=== PATIENT | male | born 1980 | race African-American/Black ===

== ENCOUNTER 2025-03-31 22:00 | Emergency (ER) | payer MEDICAID, OTHER ==
--- NOTE | 2025-03-31 22:10 | ED.PDOC ---
Back pain HPI HPI Comments 45-year-old male presents to the ED chief complaint acute on chronic left foot pain. States greater than 2 years ago had surgery for fracture over the past 3 days pain has been getting worse. Also states chronic ulcer nonhealing. Denies new injury, numbness, weakness, fever, chills, nausea or vomiting. Time Seen by MD: 22:07 Reviewed Notes: Nurses Notes, Medications, Allergies Allergies: Coded Allergies: No Known Drug Allergy (Verified Allergy, Unknown, 04/01/25) Home Meds Active Scripts Meloxicam (Meloxicam) 15 Mg Tab, 1 TAB PO DAILY for 14 Days, #14 TAB Prov:BOBBYVICTORINO [employer] 04/01/25 Doxycycline Hyclate (Doxycycline Hyclate) 100 Mg Cap, 100 MG PO BID for 7 Days, #14 CAP Prov:VICTORINO ROSALES [facility] 04/01/25 Information Source: Patient Past Medical History PAST MEDICAL HISTORY: Denies Surgical History: Denies all surgeries Family History Family History: Reviewed,noncontributory to illness Social History Smoker: Non-Smoker Alcohol: Denies ETOH Use Drugs: Denies Drug Use Constitutional: denies: chills, diaphoresis, fatigue, fever, malaise, sweats, weakness, others EENTM: denies: blurred vision, double vision, ear bleeding, ear discharge, ear drainage, ear pain, ear ringing, eye pain, eye redness, hearing loss, mouth pain, mouth swelling, nasal discharge, nose bleeding, nose congestion, nose pain, photophobia, tearing, throat pain, throat swelling, voice changes, others Respiratory: denies: cough, hemoptysis, orthopnea, SOB at rest, shortness of breath, SOB with excertion, stridor, wheezing, others Cardiovascular: denies: chest pain, dizzy spells, diaphoresis, Dyspnea on exertion, edema, irregular heart beat, left arm pain, lightheadedness, palpitations, PND, syncope, others Gastrointestinal: denies: abdomen distended, abdominal pain, blood streaked bowels, constipated, diarrhea, dysphagia, difficulty swallowing, hematemesis, melena, nausea, poor appetite, poor fluid intake, rectal bleeding, rectal pain, vomiting, others Genitourinary: denies: burning, dysuria, flank pain, frequency, hematuria, incontinence, penile discharge, penile sore, pain, testicle pain, testicle swelling, urgency, others Neurological: denies: dizziness, fainting, headache, left sided numbness, left sided weakness, numbness, paresthesia, pre-existing deficit, right sided numbness, right sided weakness, seizure, speech problems, tingling, tremors, weakness, others Musculoskeletal: reports: others (left foot ); denies: back pain, gout, joint pain, joint swelling, muscle pain, muscle stiffness, neck pain Physical Exam General Appearance: No Apparent Distress, Normal HEENT: Head (Moderate facial swelling orbital edema), Pharynx Normal, TMs Normal Neck: Full Range of Motion, Non-Tender Respiratory: Chest Non-Tender, Lungs Clear, No Accessory Muscle Use, No Respiratory Distress, Normal Breath Sounds Cardiovascular: No Edema, No JVD, No Murmur, No Gallop, Normal Peripheral Pulses, Regular Rate/Rhythm Breast Exam: Deferred Gastrointestinal: No Organomegaly, Non Tender, No Pulsatile Mass, Normal Bowel Sounds, Soft Genitalia: Deferred Pelvic: Deferred Rectal: Deferred Extremities: Normal capillary refill, Normal inspection, Normal range of motion, Non-tender, No pedal edema Musculoskeletal : Apperance: Normal Neurologic: Alert, No Motor Deficits, Normal Affect, Normal Mood, No Sensory Deficits Cerebellar Function: Normal Reflexes: Normal Skin: Dry, Normal Color, Warm Lymphatic: No Adenopathy Was a procedure done? Was a procedure done?: No Back Pain Differential Dx Differential Diagnosis: Fracture, Musculoskeletal Pain X-Ray, Labs, Meds, VS Comment Patient called out x3 in the lobby and outside no answer patient was taken out of the system as left without being triage. However patient states he was outside in the bench sleeping did not hear his name. Rechecked in Time of 1ST Reevaluation: 22:09 Reevaluation 1ST: Unchanged Patient Education/Counseling: Diagnosis, Treatment, Prognosis, Need For Follow Up Family Education/Counseling: No Family Present Departure 1 Departure Time of Disposition: 22:05 Impression: Primary Impression: Chronic foot ulcer Qualified Codes: L97.529 - Non-pressure chronic ulcer of other part of left foot with unspecified severity Disposition: 07 LEFT WITHOUT BEING TRIAGED Condition: Stable Discharged With: Self Critical Care Note Critical Care Time?: No Stability Stability form required: VICTORINO Guallpa Mar 31, 2025 22:10
[2025-04-01] MEDS ORDERED: cefTRIAXone SOD 1,000 MG VL ONE (01:34)
[2025-04-01] MEDS ORDERED: HYDROcodone-ACET 5/325MG TAB ONE (01:34)
[2025-04-01] MEDS ORDERED: DOXY100C4 PO (03:53)
[2025-04-01] MEDS ORDERED: MELO15TA29 PO (03:54)
== END 2025-03-31 22:05 | disposition left against medical advice (07) ==
LOC: ER 22:00
DX: L97.529 Non-pressure chronic ulcer of other part of left foot with unspecified severity (principal); Z79.1 Long term (current) use of non-steroidal anti-inflammatories (NSAID); Z79.899 Other long term (current) drug therapy

== ENCOUNTER 2025-04-01 00:53 | Emergency (ER) | payer MEDICAID, OTHER ==
[~2025-04-01] VITALS: Ht 177.8 cm; Wt 72.3 kg
--- NOTE | 2025-04-01 01:31 | ED.PDOC ---
History of Present Illness(SKN HPI Comments PATIENT C/O LEFT FOOT PAIN, SWELLING, AND AN ABSCESS X2 YEARS Chief Complaint: Lower Extremity Time Seen by MD: 00:56 History of Present Illness: Nurses Notes, Medications, Allergies Allergies: Coded Allergies: No Known Drug Allergy (Verified Allergy, Unknown, 04/01/25) Home Meds Active Scripts Doxycycline Hyclate (Doxycycline Hyclate) 100 Mg Cap, 100 MG PO BID for 7 Days, #14 CAP Prov:VICTORINO ROSALES [employer] 04/01/25 Information Source: Patient Mode of Arrival: Ambulatory Past Medical History PAST MEDICAL HISTORY: Denies Surgical History: Denies all surgeries Family History Family History: Reviewed,noncontributory to illness Social History Smoker: Non-Smoker Alcohol: Denies ETOH Use Drugs: Denies Drug Use Constitutional: denies: chills, diaphoresis, fatigue, fever, malaise, sweats, weakness, others EENTM: denies: blurred vision, double vision, ear bleeding, ear discharge, ear drainage, ear pain, ear ringing, eye pain, eye redness, hearing loss, mouth pain, mouth swelling, nasal discharge, nose bleeding, nose congestion, nose pain, photophobia, tearing, throat pain, throat swelling, voice changes, others Respiratory: denies: cough, hemoptysis, orthopnea, SOB at rest, shortness of breath, SOB with excertion, stridor, wheezing, others Cardiovascular: denies: chest pain, dizzy spells, diaphoresis, Dyspnea on exertion, edema, irregular heart beat, left arm pain, lightheadedness, palpitations, PND, syncope, others Gastrointestinal: denies: abdomen distended, abdominal pain, blood streaked bowels, constipated, diarrhea, dysphagia, difficulty swallowing, hematemesis, melena, nausea, poor appetite, poor fluid intake, rectal bleeding, rectal pain, vomiting, others Genitourinary: denies: burning, dysuria, flank pain, frequency, hematuria, incontinence, penile discharge, penile sore, pain, testicle pain, testicle swelling, urgency, others Neurological: denies: dizziness, fainting, headache, left sided numbness, left sided weakness, numbness, paresthesia, pre-existing deficit, right sided numbness, right sided weakness, seizure, speech problems, tingling, tremors, weakness, others Musculoskeletal: reports: joint swelling; denies: back pain, gout, joint pain, muscle pain, muscle stiffness, neck pain, others Integumetry: reports: wounds (left foot); denies: bruises, change in color, change in hair/nails, dryness, laceration, lesions, lumps, rash, others Hematologic/Lymphatic: denies: anemia, blood clots, easy bleeding, easy bruising, swollen glands, others Endocrine: denies: excessive hunger, excessive sweating, excessive thirst, excessive urination, flushing, intolerance to cold, intolerance to heat, unexplained weight gain, unexplained weight loss, others Psychiatric: denies: anxiety, bipolar disorder, depression, hopeless, panic disorder, schizophrenia, sleepless, suicidal, others Physical Exam General Appearance: No Apparent Distress, Normal HEENT: Pharynx Normal Neck: Non-Tender Respiratory: Lungs Clear, No Respiratory Distress, Normal Breath Sounds Cardiovascular: No Murmur, Normal Peripheral Pulses, Regular Rate/Rhythm Breast Exam: Deferred Gastrointestinal: Non Tender, Soft Genitalia: Deferred Pelvic: Deferred Rectal: Deferred Extremities: Normal capillary refill, Normal range of motion, Pedal edema (left foot non-pitting ) Musculoskeletal : Apperance: Normal Neurologic: Alert, No Motor Deficits, Normal Affect, Normal Mood, No Sensory Deficits Cerebellar Function: Normal Reflexes: Normal Skin: Dry, Normal Color, Warm, Wounds (left foot lateral aspect pressure ulcer noted clear drainge no noted erythema ) Lymphatic: No Adenopathy Was a procedure done? Was a procedure done?: No Differential Diagnosis (INTG) Differential Diagnosis: Cellulitis, Puncture Wound Differential Diagnosis: Abscess X-Ray, Labs, Meds, VS Vital Signs Date Time Temp Pulse Resp B/P (MAP) Pulse Ox O2 Delivery O2 Flow Rate FiO2 04/01/25 01:12 98.2 83 18 163/94 (117) 97 98.2 Current Medications Medications (Trade) Dose Ordered Sig/Zachary Route Start Time Stop Time Status Last Admin Acetaminophen/ Hydrocodone Bitart ([place] 5/325MG Tab) 1 tab ONCE ONCE PO 04/01/25 01:15 04/01/25 01:16 DC 04/01/25 01:40 Ceftriaxone Sodium (Rocephin) 1,000 mg ONCE ONCE IM 04/01/25 01:15 04/01/25 01:16 DC 04/01/25 01:40 X-Ray, Labs, Meds, VS Comment Left foot x-ray shows no acute fracture osseous lesions hardware intact. Script trial of meloxicam and doxycycline. Wound dressed and cleansed. Advised to follow up with his PCP in 2 three days for re-evaluation. Take medication as prescribed. Side effects discussed ER return precautions given patient indicates understanding agrees with discharge plan of care Images Reviewed?: Images reviewed and evaluated by me Time of 1ST Reevaluation: 00:56 Reevaluation 1ST: Unchanged Patient Education/Counseling: Diagnosis, Treatment, Prognosis, Need For Follow Up Family Education/Counseling: No Family Present SEPSIS Sepsis Screen Date sepsis recognized/suspect: Apr 01, 2025 Time Sepsis recognized/suspect: 113 Recent Procedure: No On Antibiotic Therapy: No Respiratory Rate >20: No Heart Rate >90: No Temp<36 C (96.8 F) or >38.3 C: No SBP <90 or MAP <65 mmHG: No New Acute Mental Status Change: No Is the patient on CPAP, BIPAP,: No Physician Orders L Foot 3 View Xray (04/01/25 01:13) Vital Signs Date Time Temp Pulse Resp B/P (MAP) Pulse Ox O2 Delivery O2 Flow Rate FiO2 04/01/25 01:12 98.2 83 18 163/94 (117) 97 98.2 Medications Medications Dose Ordered Sig/Zachary Route Start Time Stop Time Status Last Admin Dose Admin Acetaminophen/ Hydrocodone Bitart 1 tab ONCE ONCE PO 04/01/25 01:15 04/01/25 01:16 DC 04/01/25 01:40 Ceftriaxone Sodium 1,000 mg ONCE ONCE IM 04/01/25 01:15 04/01/25 01:16 DC 04/01/25 01:40 Departure 1 Departure Time of Disposition: 03:51 Impression: Primary Impression: Chronic foot ulcer Qualified Codes: L97.529 - Non-pressure chronic ulcer of other part of left foot with unspecified severity Disposition: 01 HOME / SELF CARE / HOMELESS Condition: Stable e-Prescriptions Meloxicam (Meloxicam) 15 Mg Tab 1 TAB PO DAILY for 14 Days, #14 TAB Prov: VICTORINO ROSALES 04/01/25 Doxycycline Hyclate (Doxycycline Hyclate) 100 Mg Cap 100 MG PO BID for 7 Days, #14 CAP Prov: VICTORINO ROSALES 04/01/25 Discharged With: Self Critical Care Note Critical Care Time?: No Stability Stability form required: No VICTORINO ROSALES Apr 01, 2025 01:31
[2025-04-01] MEDS: HYDROcodone-ACET 5/325MG TAB PO ONE (01:40)
[2025-04-01] MEDS: cefTRIAXone SOD 1,000 MG VL IM ONE (01:40)
[2025-04-01] MEDS ORDERED: DOXY100C4 PO (03:53)
[2025-04-01] MEDS ORDERED: MELO15TA29 PO (03:54)
[2025-04-01 04:30] VITALS: BP 146/83; PULSE 83; RESP 16; TEMP 98.1; O2SAT 96
--- NOTE | 2025-04-01 05:07 | DVH ---
CLINICAL INDICATION: pain and swelling TECHNIQUE: XY L FOOT 3 VIEW XRAY Comparison: None FINDINGS/IMPRESSION: : There is no evidence of acute fracture or dislocation. Pes planus. Valgus angulation about the 1st metatarsal phalangeal joint measures 21 degrees, consistent with mode rate hallux valgus. Hardware within the calcaneus without evidence of complication. Moderate tibiotalar joint effusion. Soft tissues are otherwise unremarkable.
== END 2025-04-01 03:56 | disposition home or self-care (01) ==
LOC: ER 00:53
DX: L97.529 Non-pressure chronic ulcer of other part of left foot with unspecified severity (principal)
CPT/HCPCS: 73630; 96372; 99283; J0696